=== PATIENT | male | born 1985 | race African-American/Black ===

== ENCOUNTER 2023-03-31 09:07 | Emergency (ER) | payer MEDICAID ==
[~2023-03-31] VITALS: Ht 188 cm; Wt 104.5 kg
[2023-03-31 09:25] VITALS: TEMP 98.3
[2023-03-31] MEDS ORDERED: SODIUM CHLORIDE 0.9% 1,000 ML IV ONE (09:30)
[2023-03-31 09:45] LABS: BASOPHILS % (AUTO) 1.1 % (0.0-2.0); HEMATOCRIT 41.3 % (41-53); HEMOGLOBIN 14.1 g/dL (13.5-17.5); LYMPHOCYTES # (AUTO) 0.7 K/uL (1.0-4.8); LYMPHOCYTES % (AUTO) 12.1 % (22.0-44.0); MEAN CORPUSCULAR HEMOGLOBIN 30.3 pg (26.0-34.0); MEAN CORPUSCULAR HGB CONC 34.1 G/dL (31.0-37.0); MEAN CORPUSCULAR VOLUME 89 fL (80-100); MONOCYTES # (AUTO) 0.5 K/uL (0.1-1.0); MONOCYTES % (AUTO) 8.8 % (2.0-9.0); NEUTROPHILS # (AUTO) 4.6 K/uL (1.8-7.7); PLATELET COUNT (AUTO) 201 K/uL (150-450); RED BLOOD CELL COUNT(AUTO) 4.65 MIL/uL (4.50-5.90); RED CELL DISTRIBUTION WIDTH 14.6 % (11.5-14.5); WHITE BLOOD COUNT (AUTO) 5.9 K/uL (4.5-11.0)
[2023-03-31 09:58] LABS: ALCOHOL, BLOOD (SERUM) 144 mg/dL (0-10)
[2023-03-31 10:00] LABS: ANION GAP 6 mmol/L (8-16); CALCIUM, TOTAL 8.3 mg/dL (8.8-10.5); CARBON DIOXIDE 30 mmol/L (22-29); CHLORIDE 103 mmol/L (98-107); CREATININE 0.99 mg/dL (0.60-1.30); GLOMERULAR FILTR. RATE CALC > 60 mL/min (>60); GLUCOSE,RANDOM 85 mg/dL (70-110); POTASSIUM 3.8 mmol/L (3.5-5.1); SODIUM SERUM 139 mmol/L (136-145); UREA NITROGEN, BLOOD 8 mg/dL (7-18)
[2023-03-31 10:07] LABS: ALANINE AMINOTRANSFERASE 21 U/L (12-78); ALBUMIN 3.6 g/dL (3.4-5.0); ALKALINE PHOSPHATASE 81 U/L (46-116); ASPARTATE AMINOTRANSFERASE 27 U/L (15-37); BILIRUBIN,TOTAL 0.5 mg/dL (0.1-1.0); TOTAL PROTEIN, SERUM 7.7 g/dL (6.4-8.2)
[2023-03-31 10:31] VITALS: BP 132/74; PULSE 72; RESP 16
== END 2023-03-31 10:37 | disposition home or self-care (01) ==
LOC: EMS 09:09
DX: F10.20 Alcohol dependence, uncomplicated (principal); F15.90 Other stimulant use, unspecified, uncomplicated; R55 Syncope and collapse; E86.0 Dehydration; J45.909 Unspecified asthma, uncomplicated; F17.210 Nicotine dependence, cigarettes, uncomplicated; Z59.00 Homelessness unspecified; Y90.9 Presence of alcohol in blood, level not specified
CPT/HCPCS: 99284; 96360; 80053; 85025; 36415; 93005; G0480; J7030